=== PATIENT | male | born 1980 | race Hispanic/Latino ===

== ENCOUNTER 2020-03-10 20:45 | Emergency (ER) | payer OTHER ==
[~2020-03-10] VITALS: Ht 175.3 cm; Wt 83.9 kg
[2020-03-10] MEDS ORDERED: ACETAMINOPHEN 325 MG TAB PO ONE (21:15)
--- NOTE | 2020-03-10 21:21 | Emergency Department Note ---
History of Present Illnes History of Present Illness Chief Complaint: Extremity Trauma/Pain History of Present Illness This is a 39 year old male with abscess to left forearm for 5 days, saw a physician via telemedicine 2 days ago and started on bactrim ds, states not getting better. . Historian: Patient Arrival Mode: Car Onset (how long ago): day(s) (5) Location: left forearm Quality: pain, swelling Radiation: non-radiation Severity: mild Onset quality: gradual Duration (how long): day(s) (5) Timing of current episode: constant Progression: unchanged Context: recent illness Relieving factors: none Exacerbating factors: none Associated symptoms: denies other symptoms Treatments prior to arrival: other (placed on bactrim ds 2 days ago) Past Medical/Family History Physician Review I have reviewed the patient's past medical and family history. Any updates have been documented here. Past Medical History Recent Fever: Yes Clinical Suspicion of Infectio: Yes New/Unexplained Change in Ment: No Other Medical History: STAPH IN RT FA 2016 Other Surgery: RT FA SX 2016 Social History Smoking Cessation: Never Smoker Alcohol Use: Social Any Illegal Drug Use: No TB Exposure/Symptoms: No Physically hurt or threatened: No Family History Family history of heart diseas: Yes Other Last Tetanus: UNK Any Pre-Existing Lines (PICC,: No Is patient up to date on immun: Yes Last Flu: DENIES Last Pneumovax: DENIES Review of Systems Review of Systems Constitutional: no symptoms EENTM: no symptoms Cardiovascular: no symptoms Respiratory: no symptoms Gastrointestinal: no symptoms Genitourinary: no symptoms Musculoskeletal: as per HPI Neurological: no symptoms Psychological: no symptoms Endocrine: no symptoms Hematological/Lymphatic: no symptoms Review of other systems All other systems reviewed and negative. Physical Exam Related Data Allergies: Coded Allergies: No Known Allergies (Unverified , 03/10/20) Triage Vital Signs Vital Signs Date Time Temp Pulse Resp B/P (MAP) Pulse Ox O2 Delivery O2 Flow Rate FiO2 03/10/20 21:01 100.5 108 20 165/97 99 Vital signs reviewed: Yes Physical Exam CONSTITUTIONAL Constitutional: well-developed, well-nourished HENT HENT: normocephalic, atraumatic, oropharynx clear/moist, nose normal HENT L/R: left ext ear normal, right ext ear normal EYES Eyes: PERRL, conjunctivae normal NECK Neck: ROM normal PULMONARY Pulmonary: effort normal, breath sounds normal CARDIOVASCULAR Cardiovascular: regular rhythm, heart sounds normal, capillary refill normal, tachycardia (rate 105) GASTROINTESTINAL Abdominal: soft, nontender, bowel sounds normal GENITOURINARY Genitourinary: exam deferred SKIN Skin: warm, dry, lesion, other (open and draining abcess to left forearm with swelling and surrounding erythema, total area 3x3 cm) MUSCULOSKELETAL Musculoskeletal: ROM normal NEUROLOGICAL Neurological: alert, oriented x 3, no gross motor or sensory deficits PSYCHOLOGICAL Psychological: mood/affect normal, judgement normal Critical Care Time Subsequent provider I assumed direction of critical care for this patient from another provider of my specialty. Assessment & Plan Assessment & Plan Final Impression: (1) Abscess of left arm Assessment & Plan pt with draining abscess to left forearm, on bactrim, not improving. pt to be discharged home doxycycline 100 mg po bid for 14 days bactroban ointment aplly bid, 15 gram tube pt instructed on warm compresses Last Vital Signs Date Time Temp Pulse Resp B/P (MAP) Pulse Ox O2 Delivery O2 Flow Rate FiO2 03/10/20 21:01 100.5 108 20 165/97 99 Medications in the ED Acetaminophen 650 mg ONCE ONCE PO ; Start 03/10/20 at 21:15; Stop 03/10/20 at 21:16; Status UNV LO VALERO MD March 10, 2020 21:21
[2020-03-10 22:14] VITALS: BP 136/88
== END 2020-03-10 22:17 | disposition home or self-care (01) ==
LOC: ER 20:45
DX: L02.414 Cutaneous abscess of left upper limb (principal)
CPT/HCPCS: 99283